=== PATIENT | male | born 1955 | race Caucasian/White ===

== ENCOUNTER 2022-10-15 23:35 | Inpatient (IN) | payer MEDICARE, OTHER ==
--- NOTE | 2022-10-16 | ED ---
Recheck HPI - General Stated Complaint: STEMI Time Seen by Provider: 10/15/22 23:43 Source: RN notes reviewed, old records reviewed Mode of arrival: EMS Limitations: no limitations - History of Present Illness Initial Comments: This is a 66-year-old male to the emergency department for evaluation. Patient presents today for evaluation regards to chest pain he was except as an outpatient transfer for chest pain evaluation and treatment. Patient arrives without chest pain currently. MD Complaint: other (Persistent chest pain possibly abnormal EKG) Returns Today for: Called Because of Abnormal Lab/Test (EKG concern) Symptoms Since Prior Visit: no new symptoms Associated Symptoms: none Treatments Prior to Arrival: Given Pain Meds on Review of Systems ROS Statement: Those systems with pertinent positive or pertinent negative responses have been documented in the HPI. ROS Other: All systems not noted in ROS Statement are negative. General Exam General appearance: alert, in no apparent distress Head exam: Present: atraumatic, normocephalic, normal inspection Eye exam: Present: normal appearance, PERRL, EOMI. Absent: scleral icterus, conjunctival injection, periorbital swelling ENT exam: Present: normal exam, mucous membranes moist Neck exam: Present: normal inspection. Absent: tenderness, meningismus, lymphadenopathy Respiratory exam: Present: normal lung sounds bilaterally. Absent: respiratory distress, wheezes, rales, rhonchi, stridor Cardiovascular Exam: Present: regular rate, normal rhythm, normal heart sounds. Absent: systolic murmur, diastolic murmur, rubs, gallop, clicks GI/Abdominal exam: Present: soft, normal bowel sounds. Absent: distended, tenderness, guarding, rebound, rigid Extremities exam: Present: normal inspection, full ROM, normal capillary refill. Absent: tenderness, pedal edema, joint swelling, calf tenderness Back exam: Present: normal inspection Neurological exam: Present: alert, oriented X3, CN II-XII intact Psychiatric exam: Present: normal affect, normal mood Skin exam: Present: warm, dry, intact, normal color. Absent: rash Course Vital Signs 10/15/22 10/15/22 23:36 23:46 Temperature 98.2 F Pulse Rate 102 H 105 H Respiratory 16 16 Rate Blood Pressure 130/83 O2 Sat by Pulse 98 98 Oximetry - Reevaluation(s) Reevaluation #1: 10/16/22 00:22 Medical record is reviewed 10/16/22 00:22 Transferring paperwork is reviewed Reevaluation #2: 10/16/22 00:22 Chest pain has resolved Reevaluation #3: 10/16/22 00:22 Patient informed results and questions answered Reevaluation #4: 10/16/22 00:22 Differential Chest Pain: Stable Angina, Unstable Angina, STEMI, NSTEMI Aortic Dissection, Pneumothorax, Musculoskeletal, Esophageal Spasm GERD, Cholecystitis, Pancreatitis, Zoster, this is not meant to be an all-inclusive list. Reevaluation #5: 10/16/22 00:22 Was pt. sent in by a medical professional or institution? @ -prior hospital Did you speak to anyone other than the patient for history? @ -EMS, prior ER physician Did you review nursing and triage notes? @ -agree Were old charts reviewed? @ -prior hospital Differential Diagnosis? @ -prior EKG interpreted by me (3pts min.)? @ -yes X-rays interpreted by me (1pt min.)? @ -[none] CT interpreted by me (1pt min.)? @ -[none] U/S interpreted by me (1pt. min.)? @ -[none] What testing was considered but not performed? (CT, X-rays, U/S, labs)? Why? @ no What meds were considered but not given? Why? @ -[none] Did you discuss the management of the patient with other professionals? 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 @ -[none] Was smoking cessation discussed for >3mins.? @ -[none] Was critical care preformed (if so, how long)? @ -[none] Were there social determinants of health that impacted care today? How? (Homelessness, low income, unemployed, alcoholism, drug addiction, transportation, low edu. Level, literacy, decrease access to med. care, senior living, rehab)? @ -no Was there de-escalation of care discussed even if they declined? (Discuss DNR or withdrawal of care, Hospice)? @ -no What co-morbidities impacted this encounter? (DM, HTN, Smoking, COPD, CAD, Cancer, CVA, Hep., AIDS, mental health diagnosis, sleep apnea, morbid obesity)? @ -no Was patient admitted / discharged? @ -admit Undiagnosed new problem with uncertain prognosis? @ -[none] Drug Therapy requiring intensive monitoring for toxicity (Heparin, Nitro, Insulin, Cardizem)? @ -[none] Were any procedures done? @ -[none] Diagnosis/symptom? @ -cp Acute, or Chronic, or Acute on Chronic? @ -[acute Uncomplicated (without systemic symptoms) or Complicated (systemic symptoms)? @ -[default] Side effects of treatment? @ -[none] Exacerbation, Progression, or Severe Exacerbation] @ -[no] Poses a threat to life or bodily function? @ -[no] - Consultations Consultation #1: Spoke with sound regarding admission. Medical Decision Making - Medical Decision Making 66 male DF for evaluation, patient presents as a transfer from outside for chest pain rule out ACS. She is again normal here in the ER patient will be admitted for cardiology evaluation management - EKG Data -: EKG Interpreted by Me (EKG is sinus tachycardia 103 TX 144 QRS 89 QTC 390) Disposition Clinical Impression: Chest pain, ACS (acute coronary syndrome) Disposition: ADMITTED IP TO THIS HOSP Condition: Good Is patient prescribed a controlled substance at d/c from ED?: No Referrals: None,Stated [Primary Care Provider] - 1-2 days Time of Disposition: 23:55
[2022-10-16] MEDS ORDERED: NALOXONE 0.4 MG/ML 1 ML VIAL IV PRN (00:55)
[2022-10-16] MEDS ORDERED: MORPHINE SULFATE 4 MG/ML SYRINGE IV PRN (00:55)
[2022-10-16] MEDS ORDERED: PROCHLORPERAZINE 5 MG TAB PO PRN (00:55)
[2022-10-16 01:09] LABS: Basophils % (A) 0 %; Eosinophils % (A) 0 %; HCT 30.6 % (39.0-53.0); HGB 9.8 gm/dL (13.0-17.5); Hypochromasia Slight; Lymphocytes # (A) 2.2 k/uL (1.0-4.8); Lymphocytes % (A) 16 %; MCHC 32.1 g/dL (31.0-37.0); MCV 90.5 fL (80.0-100.0); Mean Platelet Volume 8.7; Monocytes # (A) 0.5 k/uL (0-1.0); Monocytes % (A) 4 %; Neutrophils # (A) 10.7 k/uL (1.3-7.7); Neutrophils % (A) 79 %; Platelet Count 310 k/uL (150-450); RBC 3.38 m/uL (4.30-5.90); RDW 14.4 % (11.5-15.5); WBC 13.5 k/uL (3.8-10.6)
[2022-10-16 01:17] LABS: Albumin 3.1 g/dL (3.5-5.0); Magnesium 1.2 mg/dL (1.6-2.3); Potassium 4.4 mmol/L (3.5-5.1); Total Bilirubin 0.3 mg/dL (0.2-1.3); Total Protein 5.4 g/dL (6.3-8.2)
[2022-10-16 01:19] LABS: INR 1.1 (<1.2)
[2022-10-16 01:20] LABS: Prothrombin Time 11.3 sec (9.0-12.0)
[2022-10-16] MEDS ORDERED: HEPARIN SODIUM 1,000 UN/ML (10ML VL) IV PRN ×3 (01:30→09:49)
--- NOTE | 2022-10-16 02:05 | XR ---
EXAMINATION TYPE: XR chest 2V DATE OF EXAM: 10/16/2022 COMPARISON: NONE HISTORY: Chest pain TECHNIQUE: 2 views FINDINGS: Heart and mediastinum are normal. Lungs are clear. Diaphragm is normal. Bony thorax is inta ct. There are chest leads. IMPRESSION: Normal chest.
[2022-10-16] MEDS: HEPARIN SOD,PORK IN 0.45% NACL 25,000 UNIT in 0.45% NACL 1 250ML.BAG IV SCH (02:21)
--- NOTE | 2022-10-16 05:09 | P.HPIM ---
History of Present Illness H&P Date: 10/16/22 Patient is a 66-year-old male with a PMH of type II DM, hypertension, and coronary artery disease status post NC in the past who is transferred from [facility] where he had presented with complaints of chest pain. The patient reports that he developed a left-sided pressure-like chest discomfort at around 8 PM tonight, with radiation to the left arm, constant, 10 out of 10 at maximum intensity, with no alleviating or exacerbating features, with some associated nausea and minimal lightheadedness. He reports that his pain resolved after receiving nitroglycerin at [facility] and reported being symptom-free at the time of interview. Denied any prior history of such pain. Denied lower extremity swelling or pain. Denied experiencing fever, chills, cough, abdominal pain, diarrhea. While at [facility], there was suspicion for an ST elevation NC which additional longer had upon arrival at the emergency room with EKG showing sinus tachycardia 10 3 bpm with T-wave flattening in lead 3 as reviewed by me. Repeat EKG showed sinus rhythm at 97 bpm with T-wave inversion in lead 3. Laboratory evaluation revealed leukocytosis of 13.5 and hemoglobin 9.8, troponin 2.650, magnesium 1.2, creatinine 2.17, and glucose 377. Review of systems: Pertinent positives and negatives as discussed in HPI, a complete review of systems was performed and all other systems are negative. Physical examination: General: non toxic, no distress, appears at stated age, obese Derm: no unusual rashes/lesions, warm Head: atraumatic, normocephalic, symmetric Eyes: EOMI, no lid lag, anicteric sclera, pupils equal round reactive to light ENT: Nose and ears atraumatic Neck: No cervical lymphadenopathy, trachea midline, supple Mouth: no lip lesion, mucus membranes moist Cardiovascular: S1S2 reg, no murmur, positive dorsalis pedis pulse bilateral, no edema Lungs: CTA bilateral, no rhonchi, no rales, no accessory muscle use Abdominal: soft, nontender to palpation, no guarding Ext: muscle strength 5 out of 5 in all 4 extremities grossly, no gross muscle atrophy, no contractures, Neuro: CN II-XI grossly intact, no gross focal neuro deficits Psych: Alert, oriented, appropriate affect Assessment/plan Non-ST elevation NC -Continue with heparin infusion -Aspirin, statin -Cardiology consulted -Cardiac monitoring -Trend troponin Severe hypomagnesemia -Replace and monitor Kidney injury, acute versus chronic -Continue with gentle IV hydration -Monitor for now Chronic conditions: Type II DM, hypertension, HLD -Insulin sliding scale with glucose monitoring -Continue with home meds once confirmed DVT prophylaxis -Heparin infusion The patient is admitted with an anticipated less than 2 midnight stay for evaluation of NSTEMI CODE STATUS: Full Code Discussed with: Patient Anticipated discharge date: in am Anticipated discharge place: Home Past Medical History Past Medical History: Chest Pain / Angina, Diabetes Mellitus, Hypertension History of Any Multi-Drug Resistant Organisms: None Reported Past Surgical History: Back Surgery Past Psychological History: No Psychological Hx Reported Smoking Status: Former smoker Past Alcohol Use History: None Reported Past Drug Use History: None Reported - Past Family History Father Family Medical History: Hypertension Medications and Allergies Allergies Allergy/AdvReac Type Severity Reaction Status Date / Time amlodipine [From [facility]] Allergy Unknown Verified 10/16/22 01:04 Physical Exam Vitals: Vital Signs Temp Pulse Resp BP Pulse Ox 10/16/22 03:30 98 24 139/85 97 10/16/22 02:30 99 24 143/77 96 10/16/22 01:30 98 24 126/77 97 10/16/22 00:30 24 130/80 98 10/15/22 23:46 105 H 16 98 10/15/22 23:36 98.2 F 102 H 16 130/83 98 Intake and Output 10/15/22 10/15/22 10/16/22 14:59 22:59 06:59 Other: Weight 94.347 kg Results CBC & Chem 7: 10/15/22 23:47 10/15/22 23:47 Labs: Abnormal Lab Results - Last 24 Hours (Table) 10/15/22 10/15/22 10/15/22 Range/Units 23:47 23:47 23:47 WBC 13.5 H (3.8-10.6) k/uL RBC 3.38 L (4.30-5.90) m/uL Hgb 9.8 L (13.0-17.5) gm/dL Hct 30.6 L (39.0-53.0) % Neutrophils # 10.7 H (1.3-7.7) k/uL APTT 88.0 H (22.0-30.0) sec Sodium 135 L (137-145) mmol/L Chloride 108 H (98-107) mmol/L Carbon Dioxide 21 L (22-30) mmol/L BUN 37 H (9-20) mg/dL Creatinine 2.17 H (0.66-1.25) mg/dL Glucose 377 H (74-99) mg/dL Calcium 8.0 L (8.4-10.2) mg/dL Magnesium 1.2 L (1.6-2.3) mg/dL AST 83 H (17-59) U/L ALT 57 H (4-49) U/L Troponin I (0.000-0.034) ng/mL Total Protein 5.4 L (6.3-8.2) g/dL Albumin 3.1 L (3.5-5.0) g/dL 10/15/22 Range/Units 23:47 WBC (3.8-10.6) k/uL RBC (4.30-5.90) m/uL Hgb (13.0-17.5) gm/dL Hct (39.0-53.0) % Neutrophils # (1.3-7.7) k/uL APTT (22.0-30.0) sec Sodium (137-145) mmol/L Chloride (98-107) mmol/L Carbon Dioxide (22-30) mmol/L BUN (9-20) mg/dL Creatinine (0.66-1.25) mg/dL Glucose (74-99) mg/dL Calcium (8.4-10.2) mg/dL Magnesium (1.6-2.3) mg/dL AST (17-59) U/L ALT (4-49) U/L Troponin I 2.650 H* (0.000-0.034) ng/mL Total Protein (6.3-8.2) g/dL Albumin (3.5-5.0) g/dL
[2022-10-16] MEDS ORDERED: METOPROLOL TARTRATE 50 MG TAB PO STA (05:10)
[2022-10-16] MEDS ORDERED: ATORVASTATIN 80 MG TAB PO STA ×2 (05:10→10:00)
[2022-10-16] MEDS ORDERED: MAGNESIUM OXIDE 400 MG TAB PO STA (06:09)
[2022-10-16] MEDS: MAGNESIUM SULFATE-D5W PMX 1 GM in DEXTROSE/WATER 1 100ML.BAG IVPB SCH ×2 (06:37→07:41)
[2022-10-16 08:22] LABS: Calcium 8.4 mg/dL (8.4-10.2); Potassium 3.9 mmol/L (3.5-5.1)
[2022-10-16] MEDS ORDERED: ASPIRIN 325 MG TAB PO SCH (09:00)
[2022-10-16] MEDS ORDERED: SODIUM CHLORIDE 0.9% 500 ML 250 ML IV ONE (09:34)
[2022-10-16] MEDS: METOPROLOL TARTRATE 50 MG TAB PO SCH ×2 (09:59→20:36)
[2022-10-16] MEDS ORDERED: ALPRAZolam 0.25 MG TAB PO PRN (10:00)
[2022-10-16] MEDS ORDERED: ASPIRIN 325 MG TAB PO STA (10:00)
[2022-10-16] MEDS ORDERED: NITROGLYCERIN SL TABS 0.4 MG TAB SUBLINGUAL PRN ×2 (10:00→21:26)
[2022-10-16] MEDS ORDERED: ALPRAZolam 0.5 MG TAB PO PRN (10:00)
[2022-10-16] MEDS: SODIUM CHLORIDE 0.9% 1,000 ML IV SCH (10:01)
[2022-10-16] MEDS ORDERED: DEXTROSE 50% SYRINGE 50 ML IVP PRN ×2 (10:11)
[2022-10-16] MEDS ORDERED: ASPIRIN 81 MG PO STA (10:21)
[2022-10-16] MEDS: INSULIN ASPART (NovoLOG) 100 UNIT/ML VIAL SQ SCH ×4 (10:32→20:37)
[2022-10-16 10:34] LABS: Glucose,Whole Blood 194 mg/dL (70-110)
[2022-10-16] MEDS ORDERED: fentaNYL (PF) 50 MCG/ML 2 ML AMP ONE (11:05)
[2022-10-16] MEDS ORDERED: VERAPAMIL 2.5 MG/ML 2 ML AMP ONE (11:05)
[2022-10-16] MEDS ORDERED: LIDOCAINE 1% INJ 10MG/ML (5 ML VIAL-PF) SQ ONE (11:36)
[2022-10-16] MEDS ORDERED: MIDAZOLAM 2 MG/2 ML VIAL IV ONE (11:39)
[2022-10-16] MEDS ORDERED: fentaNYL (PF) 50 MCG/ML 2 ML AMP IV ONE (11:39)
[2022-10-16] MEDS ORDERED: SODIUM CHLORIDE 0.9% 1,000 ML IV ONE (11:40)
[2022-10-16] MEDS: HEPARIN SODIUM 1,000 UN/ML (10ML VL) IV ONE ×3 (11:42→12:10)
[2022-10-16] MEDS ORDERED: TICAGRELOR 90 MG TAB ONE (11:54)
[2022-10-16] MEDS ORDERED: TICAGRELOR 90 MG TAB PO ONE (11:55)
[2022-10-16] MEDS: NITROGLYCERIN 1000MCG/10ML SYRINGE INTRACORON ONE ×2 (12:04→12:09)
[2022-10-16] MEDS ORDERED: IOPAMIDOL-370 125ML BTL INJ ONE (12:12)
--- NOTE | 2022-10-16 13:53 | P.CRDCN ---
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 He has a past medical history of hypertension, hyperlipidemia, diabetes mellitus type 2, gastroesophageal reflux disease, coronary artery disease, chronic kidney di sease, osteoarthritis, remote history of tobacco use [facility]sided chest pain left arm pain while he was laying on the couch and started around 8 PM yesterday. He states he was given 2 nitroglycerin and aspirin on EMS transport and the pain was gone by the time he reached the hospital. Patient also gives history of having recent influenza A greater than 1 week ago. He continues to have cough with phlegm production. Patient had magnesium replaced and has been started on heparin drip. EKG T-wave inversions in the inferior leads Chest x-ray no acute cardiac troponin process WBC 13.5, hemoglobin 9.8. Sodium 135, potassium 4.4, BUN 37 and creatinine 2.17 initially. Repeat BUN 30 and creatinine 1.88. Magnesium 1.2 troponin 2.65, 11.4, 10.7 Home cardiac medications: Amlodipine 5 mg daily, aspirin 81 mg daily, atorvastatin 20 mg daily, chlorthalidone 50 mg daily, hydrochlorothiazide 25 mg daily, lisinopril 20 mg 3 times daily, Lopressor 50 mg twice daily Review Of Systems: At the time of my evaluation: Constitutional: No fever, no chills. No weakness, fatigue or lethargy. EENT: No headache. No dizziness. Lungs: No shortness of breath, reports cough, reports sputum production. No wheezing. Cardiovascular: No chest pain, no lower extremity edema. No palpitations. No paroxysmal nocturnal dyspnea. No orthopnea. No lightheadedness or dizziness. No syncopal episodes. Abdominal: No abdominal pain. No nausea, vomiting. No diarrhea. No constipation. No bloody or tarry stools. No loss of appetite. Genitourinary: No dysuria.. No urinary retention. Musculoskeletal: No myalgias. No muscle weakness, no gait dysfunction, no frequent falls. No back pain. No neck pain. Integumentary: No wounds, no lesions. No rash or pruritus. No unusual bruising. Neurologic: No aphasia. No facial droop. No change in mentation. No head injury. No headache. No paralysis. No paresthesia. Psychiatric: No depression. No anxiety. Endocrine: No abnormal blood sugars. Physical examination: Gen: This is a 66-year-old male. He is resting on ER stretcher and appears to be comfortable at rest. Family members at bedside VS: reviewed HEENT: Head is atraumatic, normocephalic. Pupils equal, round. Sclerae is anicteric. NECK: Supple. No JVD. No lymphadenopathy. No thyromegaly. LUNGS: Clear to auscultation. No wheezes or rhonchi. No intercostal retractions. HEART: Regular rate and rhythm. No murmur. ABDOMEN: Soft. Bowel sounds are present. No masses. No tenderness. EXTREMITIES: No pedal edema. No calf tenderness. NEUROLOGICAL: Patient is awake, alert and oriented x3. Cranial nerves 2 through 12 are grossly intact. Assessment: Non-ST elevated myocardial infarction Hypertension Hyperlipidemia Diabetes mellitus type 2 Gastroesophageal reflux disease Coronary artery disease history unknown details Acute kidney injury Remote history of tobacco use Plan: Continue patient on heparin drip Obtain 2-D echocardiogram and Doppler study to assess cardiac structure and function Patient will be scheduled for cardiac catheterization today with Dr. Caballero. Recommend holding chlorthalidone, lisinopril, hydrochlorothiazide We have resumed patient's Norvasc, aspirin, atorvastatin and Lopressor Further recommendations to follow based upon clinical course Thank you kindly for this consultation. Nurse practitioner note has been reviewed, I agree with documented findings and plan of care. Patient was seen and examined. Past Medical History Past Medical History: Chest Pain / Angina, Diabetes Mellitus, Hypertension History of Any Multi-Drug Resistant Organisms: None Reported Past Surgical History: Back Surgery Past Psychological History: No Psychological Hx Reported Smoking Status: Former smoker Past Alcohol Use History: None Reported Past Drug Use History: None Reported - Past Family History Father Family Medical History: Hypertension Mother Family Medical History: Congestive Heart Failure (CHF), Diabetes Mellitus Medications and Allergies Home Medications Medication Instructions Recorded Confirmed Type Aspirin 81 mg PO DAILY 10/16/22 10/16/22 History Atorvastatin [Lipitor] 20 mg PO DAILY 10/16/22 10/16/22 History Chlorthalidone 50 mg PO QAM 10/16/22 10/16/22 History Cyclobenzaprine [Flexeril] 10 mg PO Q8H PRN 10/16/22 10/16/22 History Diclofenac Sodium Gel [Voltaren 1 applic TOPICAL QID PRN 10/16/22 10/16/22 History Gel] Gabapentin 600 mg PO DAILY 10/16/22 10/16/22 History Meloxicam [Mobic] 15 mg PO DAILY 10/16/22 10/16/22 History Metoprolol Tartrate [Lopressor] 50 mg PO BID 10/16/22 10/16/22 History Multivitamins, Thera [Multivitamin 1 tab PO DAILY 10/16/22 10/16/22 History (formulary)] Omeprazole [PriLOSEC] 20 mg PO BID 10/16/22 10/16/22 History Pioglitazone [Actos] 30 mg PO DAILY 10/16/22 10/16/22 History Triamcinolone 0.5% Cream [Kenalog 1 applic TOPICAL BID 10/16/22 10/16/22 History 0.5% Cream] Zolpidem [Ambien] 10 mg PO HS 10/16/22 10/16/22 History amLODIPine [Norvasc] 5 mg PO HS 10/16/22 10/16/22 History glipiZIDE [Glucotrol XL] 10 mg PO BID 10/16/22 10/16/22 History hydroCHLOROthiazide [Hydrodiuril] 25 mg PO DAILY 10/16/22 10/16/22 History lisinopriL [Zestril] 20 mg PO TID 10/16/22 10/16/22 History metFORMIN HCL [Glucophage] 1,000 mg PO BID 10/16/22 10/16/22 History Allergies Allergy/AdvReac Type Severity Reaction Status Date / Time amlodipine [From Norvasc] Allergy Unknown Verified 10/16/22 08:58 Physical Exam Vitals: Vital Signs Temp Pulse Resp BP Pulse Ox 10/16/22 08:32 97 10/16/22 06:00 99 24 150/93 97 10/16/22 05:30 104 H 18 150/93 95 10/16/22 03:30 98 24 139/85 97 10/16/22 02:30 99 24 143/77 96 10/16/22 01:30 98 24 126/77 97 10/16/22 00:30 24 130/80 98 10/15/22 23:46 105 H 16 98 10/15/22 23:36 98.2 F 102 H 16 130/83 98 Intake and Output 10/15/22 10/16/22 10/16/22 22:59 06:59 14:59 Other: Weight 94.347 kg Results 10/15/22 23:47 10/16/22 07:12 Cardiac Enzymes 10/15/22 10/15/22 10/16/22 Range/Units 23:47 23:47 04:06 AST 83 H (17-59) U/L Troponin I 2.650 H* 11.400 H* (0.000-0.034) ng/mL 10/16/22 Range/Units 07:12 AST (17-59) U/L Troponin I 10.700 H* (0.000-0.034) ng/mL Coagulation 10/15/22 Range/Units 23:47 PT 11.3 (9.0-12.0) sec APTT 88.0 H (22.0-30.0) sec CBC 10/15/22 Range/Units 23:47 WBC 13.5 H (3.8-10.6) k/uL RBC 3.38 L (4.30-5.90) m/uL Hgb 9.8 L (13.0-17.5) gm/dL Hct 30.6 L (39.0-53.0) % Plt Count 310 (150-450) k/uL Comprehensive Metabolic Panel 10/15/22 10/16/22 Range/Units 23:47 07:12 Sodium 135 L 138 (137-145) mmol/L Potassium 4.4 3.9 (3.5-5.1) mmol/L Chloride 108 H 108 H (98-107) mmol/L Carbon Dioxide 21 L 22 (22-30) mmol/L BUN 37 H 30 H (9-20) mg/dL Creatinine 2.17 H 1.88 H (0.66-1.25) mg/dL Glucose 377 H 163 H (74-99) mg/dL Calcium 8.0 L 8.4 (8.4-10.2) mg/dL AST 83 H (17-59) U/L ALT 57 H (4-49) U/L Alkaline Phosphatase 69 (38-126) U/L Total Protein 5.4 L (6.3-8.2) g/dL Albumin 3.1 L (3.5-5.0) g/dL Current Medications Generic Name Dose Route Start Last Admin Trade Name Ermias PRN Reason Stop Dose Admin Aspirin 325 mg 10/16/22 09:00 Aspirin 325 Mg Tab PO DAILY [facility] Heparin Sodium (Porcine) 0 unit 10/16/22 01:30 Heparin Sodium 1,000 Un/Ml (10ml Vl) IV PER PROTOCOL PRN Low PTT Protocol Heparin Sodium/Sodium Chloride 250 mls @ 10.001 mls/hr 10/16/22 01:30 10/16/22 02:21 25,000 unit/ Sodium Chloride IV 10.6 units/kg/hr .Q24H REGGIE 10.001 mls/hr Administration Protocol 10.6 UNITS/KG/HR Morphine Sulfate 4 mg 10/16/22 00:55 Morphine Sulfate 4 Mg/Ml Syringe IV Q4HR PRN Severe Pain (Scale 7 to 10) Naloxone HCl 0.2 mg 10/16/22 00:55 Naloxone 0.4 Mg/Ml 1 Ml Vial IV Q2M PRN Opioid Reversal Prochlorperazine Maleate 5 mg 10/16/22 00:55 Prochlorperazine 5 Mg Tab PO Q8HR PRN Nausea And Vomiting Intake and Output 10/15/22 10/16/22 10/16/22 22:59 06:59 14:59 Other: Weight 94.347 kg 10/15/22 23:47 10/16/22 07:12
--- NOTE | 2022-10-16 15:46 | P.PN ---
Progress Note - Text Progress Note Date: 10/16/22 Hospitalist Interval Note Patient seen and examined at bedside. Vital signs reviewed General: non toxic, no distress, appears at stated age Derm: warm, dry Head: atraumatic, normocephalic, symmetric Eyes: EOMI, no lid lag, anicteric sclera Mouth: no lip lesion, mucus membranes moist Cardiovascular: S1S2 reg, no murmur, positive posterior tibial pulse bilateral, Lungs: CTA bilateral, no rhonchi, no rales , no accessory muscle use Abdominal: soft, nontender to palpation, no guarding, no appreciable organomegaly Ext: no gross muscle atrophy, no edema, no contractures Neuro: CN II-XI grossly intact, no focal neuro deficits Psych: Alert, oriented, appropriate affect Assessment/Plan: Non-ST elevation NC Severe hypomagnesemia Acute kidney injury - Cardiology consult - On heparin drip - Likely cardiac cath today - We'll continue to monitor BMP and urine output This is an update note for patient. There is no charge associated with this note.
[2022-10-16 17:24] LABS: Glucose,Whole Blood 373 mg/dL (70-110)
[2022-10-16 20:16] LABS: Glucose,Whole Blood 235 mg/dL (70-110)
[2022-10-16] MEDS: ZOLPIDEM 5 MG TAB PO SCH (20:36)
[2022-10-16] MEDS: amLODIPine 5 MG TAB PO SCH (20:36)
[2022-10-16] MEDS ORDERED: MAG HYDROX/AL HYDROX/SIMETH 30 ML CUP PO PRN (21:26)
[2022-10-16] MEDS ORDERED: ATROPINE SULFATE 0.1 MG/ML 10ML SYRINGE IV PRN (21:26)
[2022-10-16] MEDS ORDERED: RX INFO: IV CONTRAST WAS GIVEN 1 EACH MISC MISCELLANE PRN (21:26)
[2022-10-16] MEDS ORDERED: ZOLPIDEM 5 MG TAB PO PRN (21:26)
--- NOTE | 2022-10-16 21:26 | P.PRCINT ---
Percutaneous Coronary Int. - Percutaneous Coronary Intervention Percutaneous Coronary Intervention: PROCEDURES PERFORMED: Left heart catheterization, bilateral coronary angiography, PCI mid PDA with a 2.25 x 12mm Xience CHRISTIE INDICATION: NSTEMI CONSENT:I have discussed the risks, benefits and alternative therapies for the above-mentioned procedure and for both sedation/analgesia as well as necessary blood product administration, if indicated, as they pertain to this patient. The patient has indicated understanding and acceptance of the risks and procedures discussed. PROCEDURE: After the risks, benefits and alternatives of the above mentioned procedure explained in detail with the patient, informed consent was obtained. Patient was taken to the catheterization lab and prepped and draped in usual fashion. 1% lidocaine was used to anesthetize the right radial artery. A 6- Maldivian sheath was placed in the right radial artery using modified Seldinger technique. Left coronary angiography was performed with a 5-Maldivian JL 3.5 catheter and right coronary angiography was performed with a 5-Maldivian JR5 cathet er in various views. A 5-Maldivian FR5 catheter was inserted into the left ventricle and pressure measurements were obtained. The decision was made to perform PCI of the PDA which appeared to be the culprit lesion. Heparin was given for ACT greater than 250. A 6Fr AL 0.75 guide was used to engage the RCA. A 0.014 BMW wire was advanced into the distal PDA. A 2.0 x 12mm balloon was used to prodilate the lesion. Next a 2.25 x 12mm Xience CHRISTIE was placed in the mid PDA. The wire was pulled and final angiogram was performed. There was a more proximal 40% PDA stenosis felt best treated medical ly. Pre intervention there was 99% stenosis and ROSA M 2 flow and post intervention there was 0% stenosis and ROSA M 3 flow. The right radial sheath was removed and a TR band was placed with hemostasis achieved. The patient tolerated the procedure well. Patient was transported back to the post catheterization holding area in stable condition. Conscious Sedation: Patient was monitored under the direct supervision of vision of myself for conscious sedation using Versed and fentanyl for a total duration of 36 minutes HEMODYNAMICS: Ao: 148/61 LV: 144/5, LVEDP 12 SELECTIVE CORONARY ARTERIOGRAPHY: LEFT MAIN: The left main is a large caliber vessel which bifurcates into the LAD and circumflex. There is no significant stenosis. LEFT ANTERIOR DESCENDING CORONARY ARTERY: LAD is a large caliber vessel which stops just short of the apex. There is diffuse proximal LAD 10-30% stenosis, and diffuse mid to distal LAD 40-50% stenosis. LEFT CIRCUMFLEX CORONARY ARTERY: Left circumflex is a moderate caliber vessel without significant stenosis. RIGHT CORONARY ARTERY: The right coronary artery is a large caliber vessel which gives off a PDA and PLV branch and is the dominant vessel. The RCA is normal. The PDA has diffuse mild to moderate disease including 30-50% proximal stenosis and a more focal mid PDA 99% stenosis. The PDA appears to reach to the apex. The PLV has diffuse mild luminal irregularities. FINAL IMPRESSION: 1. CAD as described above including mid LAD long 40-50% stenosis, PDA 99% stenosis 2. Normal left sided filling pressures 3. CKD PLAN: 1. Aggressive risk factor modification per most recent ACC/AHA guidelines. 2. Continue dual antiplatelets with aspirin and Brillinta for 12 months. 3. IVF and monitor Cr closely.
[2022-10-17] MEDS: TICAGRELOR 90 MG TAB PO SCH ×3 (00:01→21:17)
[2022-10-17] MEDS: SODIUM CHLORIDE 0.9% 1,000 ML in EMPTY BAG 1 BAG IV SCH ×3 (01:02→20:41)
[2022-10-17] MEDS: HEPARIN SOD,PORK IN 0.45% NACL 25,000 UNIT in 0.45% NACL 1 250ML.BAG IV SCH (01:03)
[2022-10-17 05:56] LABS: Glucose,Whole Blood 176 mg/dL (70-110)
[2022-10-17] MEDS: INSULIN ASPART (NovoLOG) 100 UNIT/ML VIAL SQ SCH ×4 (05:59→21:18)
[2022-10-17] MEDS: SODIUM CHLORIDE 0.9% 1,000 ML IV SCH (06:00)
[2022-10-17] MEDS ORDERED: HEPARIN SODIUM,PORCINE 10,000 UNIT in SODIUM CHLORIDE 0.9% 1,000 ML IRRIGATION PRN (07:00)
[2022-10-17] MEDS ORDERED: HEPARIN SODIUM,PORCINE 2,500 UNIT in SODIUM CHLORIDE 0.9% 250 ML IRRIGATION PRN (07:00)
[2022-10-17] MEDS ORDERED: ASPIRIN 81 MG PO SCH (09:00)
[2022-10-17 09:03] LABS: Calcium 8.4 mg/dL (8.4-10.2); Potassium 4.4 mmol/L (3.5-5.1)
[2022-10-17] MEDS: GABAPENTIN 300 MG CAP PO SCH (09:12)
[2022-10-17] MEDS: METOPROLOL TARTRATE 50 MG TAB PO SCH ×2 (09:12→21:17)
[2022-10-17] MEDS: ASPIRIN 81 MG PO SCH (09:12)
[2022-10-17] MEDS: ATORVASTATIN 40 MG TAB PO SCH (09:13)
[2022-10-17 12:04] LABS: Glucose,Whole Blood 259 mg/dL (70-110)
--- NOTE | 2022-10-17 12:22 | P.PN ---
Subjective Progress Note Date: 10/17/22 Hospital Course: 66-year-old male with a PMH of type II DM, hypertension, and coronary artery disease status post ME in the past who is transferred from [facility] where he had presented with complaints of chest pain. While at [facility], there was suspicion for an ST elevation ME which additional longer had upon arrival at the emergency room with EKG showing sinus tachycardia 10 3 bpm with T-wave flattening in lead 3. Repeat EKG showed sinus rhythm at 97 bpm with T-wave inversion in lead 3. Laboratory evaluation revealed leukocytosis of 13.5 and hemoglobin 9.8, troponin 2.650, magnesium 1.2, creatinine 2.17, and glucose 377. Troponin peaked at 11.4. Patient kept on heparin drip. Cardiology was consulted. Cardiac catheterization completed, noted to have mid LAD 40-50% stenosis, PDA 99% stenosis status post PCI CHRISTIE to midPDA. Echo pending. Subjective: Patient seen and examined at bedside. No acute events overnight. Denies any further chest pain, palpitations, nausea, vomiting, diarrhea, constipation, abdominal pain, or urinary complaints. Pertinent positives and negatives as discussed above, a complete review of systems was performed and all other systems are negative. Vitals Signs Reviewed. General: nontoxic, no distress, appears at stated age Derm: warm, dry Head: atraumatic, normocephalic, symmetric Eyes: EOMI, no lid lag, anicteric sclera Mouth: no lip lesion, mucus membranes moist Cardiovascular: S1S2 reg, tachycardic, no murmur Lungs: CTA bilateral, no rhonchi, no rales , no accessory muscle use Abdominal: soft, nontender to palpation, no guarding, no appreciable organomegaly Ext: no gross muscle atrophy, no edema, no contractures Neuro: CN II-XI grossly intact, no focal neuro deficits Psych: Alert, oriented, appropriate affect Assessment and Plan: Non-ST elevation [place] Coronary artery disease Status post stent to mid PDA -Aspirin, [place], statin -Cardiology following -Cardiac monitoring -Also on metoprolol -Echo pending Severe hypomagnesemia -Replace and monitor Kidney injury, acute versus chronic -Continue with gentle IV hydration -Renal function improving, will restart on CAREN inhibitor at a lower dose -Patient is also on chlorthalidone and hydrochlorothiazide at home, unsure why - continue to hold Chronic conditions: Type II DM, hypertension, HLD -Insulin sliding scale with glucose monitoring -Medications reviewed and reconciled DVT ppx: Subcu heparin Code status: Full code Anticipated discharge place: Home Anticipated discharge time: Later tomorrow Objective - Vital Signs Vital signs: Vital Signs Temp 98.0 F 10/16/22 20:00 Pulse 96 10/17/22 08:00 Resp 18 10/17/22 01:21 BP 138/81 10/17/22 01:21 Pulse Ox 97 10/17/22 01:21 FiO2 Intake & Output 10/16/22 10/17/22 10/17/22 18:59 06:59 18:59 Intake Total 1213.608 5595 Output Total 100 Balance 6019.525 7160 Weight 94.347 kg Intake: IV 1000 Intake, IV Titration 82.008 1000 Amount Heparin Sod,Pork in 0.45% 82.008 NaCl 25,000 unit In 0.45 % NaCl 1 250ml.bag @ 10.6 UNITS/KG/HR 10.001 mls/ hr IV .Q24H [facility] Rx#: [id number] Sodium Chloride 0.9% 1, 1000 000 ml @ 50 mls/hr IV . Q20H [facility] Rx#:[id number] Oral 222 240 Output: Urine 100 Other: Voiding Method Urinal Urinal # Voids 4 - Labs CBC & Chem 7: 10/15/22 23:47 10/17/22 08:13 Labs: Abnormal Lab Results - Last 24 Hours (Table) 10/15/22 10/16/22 10/16/22 Range/Units 23:47 16:04 17:09 APTT 43.2 H (22.0-30.0) sec Sodium (137-145) mmol/L Creatinine (0.66-1.25) mg/dL Glucose (74-99) mg/dL POC Glucose (mg/dL) 373 H (70-110) mg/dL Hemoglobin A1c 7.9 H (0.0-6.0) % 10/16/22 10/17/22 10/17/22 Range/Units 20:15 05:54 08:13 APTT (22.0-30.0) sec Sodium 133 L (137-145) mmol/L Creatinine 1.40 H (0.66-1.25) mg/dL Glucose 267 H (74-99) mg/dL POC Glucose (mg/dL) 235 H 176 H (70-110) mg/dL Hemoglobin A1c (0.0-6.0) % 10/17/22 Range/Units 12:03 APTT (22.0-30.0) sec Sodium (137-145) mmol/L Creatinine (0.66-1.25) mg/dL Glucose (74-99) mg/dL POC Glucose (mg/dL) 259 H (70-110) mg/dL Hemoglobin A1c (0.0-6.0) %
[2022-10-17] MEDS: lisinopriL 20 MG TAB PO SCH (13:31)
--- NOTE | 2022-10-17 14:29 | P.PN ---
Subjective Progress Note Date: 10/17/22 History of present illness: This is a 66-year-old male patient has seen a cable maker in [place]. He has a past medical history of hypertension, hyperlipidemia, diabetes mellitus type 2, gastroesophageal reflux disease, coronary artery disease, chronic kidney disease, osteoarthritis, remote history of tobacco use [facility]sided chest pain left arm pain while he was laying on the couch and started around 8 PM yesterday. He states he was given 2 nitroglycerin and aspirin on EMS transport and the pain was gone by the time he reached the hospital. Patient also gives history of having recent influenza A greater than 1 week ago. He continues to have cough with phlegm production. Patient had magnesium replaced and has been started on heparin drip. EKG T-wave inversions in the inferior leads Chest x-ray no acute cardiac troponin process WBC 13.5, hemoglobin 9.8. Sodium 135, potassium 4.4, BUN 37 and creatinine 2.17 initially. Repeat BUN 30 and creatinine 1.88. Magnesium 1.2 troponin 2.65, 11.4, 10.7 Home cardiac medications: Amlodipine 5 mg daily, aspirin 81 mg daily, atorvastatin 20 mg daily, chlorthalidone 50 mg daily, hydrochlorothiazide 25 mg daily, lisinopril 20 mg 3 times daily, Lopressor 50 mg twice daily 10/17 Yesterday, patient underwent cardiac catheterization with Dr. Caballero and PCI of the mid PDA with stent. Patient has been started on Brilinta. Heart rate has been in the 70s to 90s, blood pressure 118/78, pulse ox 93% on room air. Potassium 4.4, BUN 20 creatinine 1.4. Echocardiogram is pending. Physical examination: Gen: This is a 66-year-old male. He is resting on ER stretcher and appears to be comfortable at rest. Family members at bedside VS: reviewed HEENT: Head is atraumatic, normocephalic. Pupils equal, round. Sclerae is anicteric. NECK: Supple. No JVD. No lymphadenopathy. No thyromegaly. LUNGS: Clear to auscultation. No wheezes or rhonchi. No intercostal retractions. HEART: Regular rate and rhythm. No murmur. ABDOMEN: Soft. Bowel sounds are present. No masses. No tenderness. EXTREMITIES: No pedal edema. No calf tenderness. NEUROLOGICAL: Patient is awake, alert and oriented x3. Cranial nerves 2 through 12 are grossly intact. Assessment: Non-ST elevated myocardial infarction status post cardiac catheterization and stent of the mid PDA Hypertension Hyperlipidemia Diabetes mellitus type 2 Gastroesophageal reflux disease Coronary artery disease history unknown details Acute kidney injury Remote history of tobacco use Plan: Continue patient on Brilinta, aspirin, statin, Lopressor, lisinopril, Norvasc Obtain 2-D echocardiogram report Patient will be scheduled for cardiac catheterization today with Dr. Caballero. Recommend holding chlorthalidone, hydrochlorothiazide Plan to monitor patient overnight and anticipate discharge home tomorrow. Nurse practitioner note has been reviewed, I agree with documented findings and plan of care. Patient was seen and examined. Objective - Vital Signs Vital signs: Vital Signs Temp 98.0 F 10/16/22 20:00 Pulse 96 10/17/22 01:21 Resp 18 10/17/22 01:21 BP 138/81 10/17/22 01:21 Pulse Ox 97 10/17/22 01:21 FiO2 Intake & Output 10/16/22 10/17/22 10/17/22 18:59 06:59 18:59 Intake Total 7547.031 5620 Output Total 100 Balance 9997.875 4347 Weight 94.347 kg Intake: IV 1000 Intake, IV Titration 82.008 1000 Amount Heparin Sod,Pork in 0.45% 82.008 NaCl 25,000 unit In 0.45 % NaCl 1 250ml.bag @ 10.6 UNITS/KG/HR 10.001 mls/ hr IV .Q24H [facility] Rx#: [id number] Sodium Chloride 0.9% 1, 1000 000 ml @ 50 mls/hr IV . Q20H [facility] Rx#:[id number] Oral 222 240 Output: Urine 100 Other: Voiding Method Urinal Urinal # Voids 4 - Labs CBC & Chem 7: 10/15/22 23:47 10/17/22 08:13 Labs: Abnormal Lab Results - Last 24 Hours (Table) 10/15/22 10/16/22 10/16/22 Range/Units 23:47 10:31 16:04 APTT 43.2 H (22.0-30.0) sec Sodium (137-145) mmol/L Creatinine (0.66-1.25) mg/dL Glucose (74-99) mg/dL POC Glucose (mg/dL) 194 H (70-110) mg/dL Hemoglobin A1c 7.9 H (0.0-6.0) % 10/16/22 10/16/22 10/17/22 Range/Units 17:09 20:15 05:54 APTT (22.0-30.0) sec Sodium (137-145) mmol/L Creatinine (0.66-1.25) mg/dL Glucose (74-99) mg/dL POC Glucose (mg/dL) 373 H 235 H 176 H (70-110) mg/dL Hemoglobin A1c (0.0-6.0) % 10/17/22 Range/Units 08:13 APTT (22.0-30.0) sec Sodium 133 L (137-145) mmol/L Creatinine 1.40 H (0.66-1.25) mg/dL Glucose 267 H (74-99) mg/dL POC Glucose (mg/dL) (70-110) mg/dL Hemoglobin A1c (0.0-6.0) %
[2022-10-17 14:47] VITALS: BMI 32.5
[2022-10-17 16:59] LABS: Glucose,Whole Blood 228 mg/dL (70-110)
[2022-10-17] MEDS: HEPARIN SODIUM,PORCINE/PF 5,000 UNIT/0.5 ML SYRINGE SQ SCH (17:29)
--- NOTE | 2022-10-17 17:39 | CA ---
Transthoracic Echo Report Name: Wilver Arredondo Age: 66 Gender: M : 1955 Exam Date: 10/17/2022 11:14 Exam Location: [place] [facility] Ht (in): 67 Wt (lb): 208 Ordering Physician: Mi Dickey Attending/Referring Phys: [id number], Keli Rn Review Yennifer Kaufman RDCS Procedure CPT: Indications: lvf, NSTEMI Cardiac Hx: Technical Quality: Technically difficult study Contrast 1: Lumason Total Dose (mL): 4 Contrast 2: Total Dose (mL): MEASUREMENTS (Male / Female) Normal Values 2D ECHO LV Diastolic Diameter PLAX 3.8 cm 4.2 - 5.9 / 3.9 - 5.3 cm LV Systolic Diameter PLAX 3.1 cm IVS Diastolic Thickness 1.2 cm 0.6 - 1.0 / 0.6 - 0.9 cm LVPW Diastolic Thickness 1.1 cm 0.6 - 1.0 / 0.6 - 0.9 cm LV Relative Wall Thickness 0.6 LA Volume 48.5 cm??? 18 - 58 / 22 - 52 cm??? DOPPLER AV Peak Velocity 91.8 cm/s AV Peak Gradient 3.4 mmHg LVOT Peak Velocity 72.9 cm/s LVOT Peak Gradient 2.1 mmHg MV Area PHT 5.3 cm??? Mitral E Point Velocity 51.1 cm/s Mitral A Point Velocity 83.7 cm/s Mitral E to A Ratio 0.6 MV Deceleration Time 143.4 ms MV E' Velocity 5.3 cm/s Mitral E to MV E' Ratio 9.6 FINDINGS Left Ventricle Mildly increased septal wall thickness. Mid septal and distal inferior wall hypokinesis. Left ventricular ejection fraction is estimated at 45-50 %. Right Ventricle Normal right ventricular size and function. Right Atrium Right atrium not well visualized. Left Atrium Normal left atrial size. Mitral Valve Mild mitral regurgitation. Aortic Valve No aortic valve stenosis or regurgitation. Tricuspid Valve Structurally normal tricuspid valve. Mild tricuspid regurgitation. Pulmonic Valve Trace pulmonic regurgitation. Pericardium No pericardial effusion. Aorta Normal size aortic root and proximal ascending aorta. CONCLUSIONS Left ventricular ejection fraction 45-50% Mild increased left ventricular wall thickness Mild mitral regurgitation Mild tricuspid regurgitation No pericardial effusion Previewed by: Dr. Yazan Caballero DO (Electronically Signed) Final Date: 17 October 2022 17:38
[2022-10-17 20:15] LABS: Glucose,Whole Blood 357 mg/dL (70-110)
[2022-10-17] MEDS: ZOLPIDEM 5 MG TAB PO SCH (21:17)
[2022-10-17] MEDS: amLODIPine 5 MG TAB PO SCH (21:17)
[2022-10-18] MEDS: HEPARIN SODIUM,PORCINE/PF 5,000 UNIT/0.5 ML SYRINGE SQ SCH ×2 (00:05→09:47)
[2022-10-18] MEDS: HEPARIN SOD,PORK IN 0.45% NACL 25,000 UNIT in 0.45% NACL 1 250ML.BAG IV SCH (01:59)
[2022-10-18] MEDS: SODIUM CHLORIDE 0.9% 1,000 ML IV SCH ×2 (01:59→22:22)
[2022-10-18] MEDS: SODIUM CHLORIDE 0.9% 1,000 ML in EMPTY BAG 1 BAG IV SCH ×2 (02:00→13:06)
[2022-10-18 06:13] LABS: Glucose,Whole Blood 186 mg/dL (70-110)
[2022-10-18] MEDS: INSULIN ASPART (NovoLOG) 100 UNIT/ML VIAL SQ SCH ×4 (06:47→20:58)
[2022-10-18] MEDS: METOPROLOL TARTRATE 50 MG TAB PO SCH ×2 (09:47→20:57)
[2022-10-18] MEDS: ATORVASTATIN 40 MG TAB PO SCH (09:47)
[2022-10-18] MEDS: TICAGRELOR 90 MG TAB PO SCH ×2 (09:47→20:58)
[2022-10-18] MEDS: lisinopriL 20 MG TAB PO SCH (09:47)
[2022-10-18] MEDS: ASPIRIN 81 MG PO SCH (09:47)
[2022-10-18] MEDS: GABAPENTIN 300 MG CAP PO SCH (09:47)
[2022-10-18] MEDS ORDERED: DEXTROSE 5% IN WATER 250 ML with AMIODARONE 300 MG IV ONE (10:20)
[2022-10-18 11:45] LABS: Glucose,Whole Blood 305 mg/dL (70-110)
--- NOTE | 2022-10-18 11:57 | P.PN ---
Subjective Progress Note Date: 10/18/22 Hospital Course: 66-year-old male with a PMH of type II DM, hypertension, and coronary artery d isease status post CT in the past who is transferred from [facility] where he had presented with complaints of chest pain. While at [facility], there was suspicion for an ST elevation CT which additional longer had upon arrival at the emergency room with EKG showing sinus tachycardia 10 3 bpm with T-wave flattening in lead 3. Repeat EKG showed sinus rhythm at 97 bpm with T-wave inversion in lead 3. Laboratory evaluation revealed leukocytosis of 13.5 and hemoglobin 9.8, troponin 2.650, magnesium 1.2, creatinine 2.17, and glucose 377. Troponin peaked at 11.4. Patient kept on heparin drip. Cardiology was consulted. Cardiac catheterization completed, noted to have mid LAD 40-50% stenosis, PDA 99% stenosis status post PCI CHRISTIE to midPDA. Echo pending. Subjective: Patient seen and examined at bedside. No acute events overnight. Denies any further chest pain, palpitations, nausea, vomiting, diarrhea, constipation, abdominal pain, or urinary complaints. Pertinent positives and negatives as discussed above, a complete review of systems was performed and all other systems are negative. Vitals Signs Reviewed. General: nontoxic, no distress, appears at stated age Derm: warm, dry Head: atraumatic, normocephalic, symmetric Eyes: EOMI, no lid lag, anicteric sclera Mouth: no lip lesion, mucus membranes moist Cardiovascular: S1S2 reg, tachycardic, no murmur Lungs: CTA bilateral, no rhonchi, no rales , no accessory muscle use Abdominal: soft, nontender to palpation, no guarding, no appreciable organomegaly Ext: no gross muscle atrophy, no edema, no contractures Neuro: CN II-XI grossly intact, no focal neuro deficits Psych: Alert, oriented, appropriate affect Assessment and Plan: Non-ST elevation CT Coronary artery disease Status post stent to mid PDA -Aspirin, [place], statin -Cardiology following -Cardiac monitoring -Echo pending Tachycardia -Most recent EKG shows sinus rhythm -Per cardiology, patient was started on amiodarone drip and increase metoprolol -Also on anticoagulation Severe hypomagnesemia -Replace and monitor Kidney injury, acute versus chronic -Continue with gentle IV hydration -Renal function improving -Patient is also on chlorthalidone and hydrochlorothiazide at home, unsure why - continue to hold Chronic conditions: Type II DM, hypertension, HLD -Insulin sliding scale with glucose monitoring -Medications reviewed and reconciled DVT ppx: Subcu heparin Code status: Full code Anticipated discharge place: Home Anticipated discharge time: Pending clinical course Objective - Vital Signs Vital signs: Vital Signs Temp 98.0 F 10/18/22 08:00 Pulse 111 H 10/18/22 08:00 Resp 17 10/18/22 08:00 BP 114/70 10/18/22 08:00 Pulse Ox 97 10/18/22 08:00 FiO2 Intake & Output 10/17/22 10/18/22 10/18/22 18:59 06:59 18:59 Intake Total 540 118 Balance 540 118 Weight 94.347 kg Intake: Oral 540 118 Other: Voiding Method Urinal # Voids 3 1 - Labs CBC & Chem 7: 10/15/22 23:47 10/17/22 08:13 Labs: Abnormal Lab Results - Last 24 Hours (Table) 10/17/22 10/17/22 10/17/22 Range/Units 12:03 16:57 20:13 POC Glucose (mg/dL) 259 H 228 H 357 H (70-110) mg/dL Magnesium (1.6-2.3) mg/dL 10/18/22 10/18/22 10/18/22 Range/Units 06:12 10:52 11:38 POC Glucose (mg/dL) 186 H 305 H (70-110) mg/dL Magnesium 1.2 L (1.6-2.3) mg/dL
[2022-10-18 12:54] LABS: T4, Free (Free Thyroxine) 1.34 ng/dL (0.78-2.19)
[2022-10-18] MEDS: APIXABAN 2.5 MG TABLET PO SCH ×2 (13:17→20:59)
--- NOTE | 2022-10-18 14:05 | P.PN ---
Subjective Progress Note Date: 10/18/22 This is Mando Benito NP, I'm dictating on behalf of Dr. Rob's H&P and A&P. Patient was interviewed and examined. Patient is a pleasant 66-year-old male who initially presented to the hospital chest pain, and recently underwent a cardiac catheterization where a stent was placed in the mid PDA. Patient reports that he is doing well today. He states that he feels fairly good, and has no pain that he can speak of. The puncture site in his groin is clean and intact with no obvious leaking. Upon evaluation, the patient has an elevated heart rate, and was found to be in A. fib with RVR. GENERAL: Well-appearing, well-nourished and in no acute distress. NECK: Supple without JVD or thyromegaly. LUNGS: Breath sounds clear to auscultation bilaterally. Respiration equal and unlabored. No wheezes, rales or rhonchi. HEART: Regular rate and rhythm without murmurs, rubs or gallops. S1 and S2 hea rd. EXTREMITIES: Normal range of motion, no edema. No clubbing or cyanosis. Peripheral pulses intact and strong. VITALS: [] TELEMETRY: [] LABS: [] IMPRESSION: 1. Non-ST elevation myocardial infarction, status post cardiac cath and stent of mid PDA 2. A. fib with RVR 3. Hypertension 4. Hyperlipidemia 5. Diabetes mellitus type 2 6. GERD line 7. Coronary artery disease 8. Acute kidney injury PLAN: Increase metoprolol to 100 mg twice a day Start [place] 2.5 mg twice a day Check TSH Give amiodarone IV 300 mg over 2 hours. If blood pressure decreases, discontinue amlodipine. Further recommendations based on the patient's clinical course Objective - Vital Signs Vital signs: Vital Signs Temp 98.0 F 10/18/22 08:00 Pulse 111 H 10/18/22 08:00 Resp 17 10/18/22 08:00 BP 114/70 10/18/22 08:00 Pulse Ox 97 10/18/22 08:00 FiO2 Intake & Output 10/17/22 10/18/22 10/18/22 18:59 06:59 18:59 Intake Total 540 236 Balance 540 236 Weight 94.347 kg Intake: Oral 540 236 Other: Voiding Method Urinal # Voids 3 1 - Labs CBC & Chem 7: 10/15/22 23:47 10/17/22 08:13 Labs: Abnormal Lab Results - Last 24 Hours (Table) 10/17/22 10/17/22 10/18/22 Range/Units 16:57 20:13 06:12 POC Glucose (mg/dL) 228 H 357 H 186 H (70-110) mg/dL Magnesium (1.6-2.3) mg/dL TSH (0.465-4.680) mIU/L 10/18/22 10/18/22 10/18/22 Range/Units 10:52 10:52 11:38 POC Glucose (mg/dL) 305 H (70-110) mg/dL Magnesium 1.2 L (1.6-2.3) mg/dL TSH 0.126 L (0.465-4.680) mIU/L
[2022-10-18] MEDS: MAGNESIUM SULFATE-D5W PMX 1 GM in DEXTROSE/WATER 1 100ML.BAG IVPB SCH ×4 (15:46→22:20)
[2022-10-18 16:58] LABS: Glucose,Whole Blood 270 mg/dL (70-110)
[2022-10-18 20:22] LABS: Glucose,Whole Blood 304 mg/dL (70-110)
[2022-10-18] MEDS: ZOLPIDEM 5 MG TAB PO SCH (20:57)
[2022-10-18] MEDS: amLODIPine 5 MG TAB PO SCH (20:58)
[2022-10-19] MEDS: SODIUM CHLORIDE 0.9% 1,000 ML in EMPTY BAG 1 BAG IV SCH ×3 (01:54→21:37)
[2022-10-19 06:23] LABS: Glucose,Whole Blood 236 mg/dL (70-110)
[2022-10-19] MEDS: INSULIN ASPART (NovoLOG) 100 UNIT/ML VIAL SQ SCH ×4 (06:31→21:37)
[2022-10-19] MEDS: ATORVASTATIN 40 MG TAB PO SCH (09:12)
[2022-10-19] MEDS: METOPROLOL TARTRATE 50 MG TAB PO SCH (09:12)
[2022-10-19] MEDS: GABAPENTIN 300 MG CAP PO SCH (09:12)
[2022-10-19] MEDS: TICAGRELOR 90 MG TAB PO SCH ×2 (09:12→21:36)
[2022-10-19] MEDS: APIXABAN 2.5 MG TABLET PO SCH ×2 (09:12→21:36)
[2022-10-19] MEDS: ASPIRIN 81 MG PO SCH (09:12)
[2022-10-19] MEDS: lisinopriL 20 MG TAB PO SCH (09:12)
[2022-10-19 09:20] LABS: Calcium 8.4 mg/dL (8.4-10.2); Potassium 4.6 mmol/L (3.5-5.1)
[2022-10-19] MEDS ORDERED: METOPROLOL TARTRATE 50 MG TAB PO ONE (10:00)
--- NOTE | 2022-10-19 11:09 | P.PN ---
Subjective Progress Note Date: 10/19/22 Hospital Course: 66-year-old male with a PMH of type II DM, hypertension, and coronary artery disease status post [place] in the past who is transferred from [facility] where he had presented with complaints of chest pain. While at [facility], there was suspicion for an ST elevation [place] which additional longer had upon arrival at the emergency room with EKG showing sinus tachycardia 10 3 bpm with T-wave flattening in lead 3. Repeat EKG showed sinus rhythm at 97 bpm with T-wave inversion in lead 3. Laboratory evaluation revealed leukocytosis of 13.5 and hemoglobin 9.8, troponin 2.650, magnesium 1.2, creatinine 2.17, and glucose 377. Troponin peaked at 11.4. Patient was on heparin drip. Cardiology was consulted. Cardiac catheterization completed, noted to have mid LAD 40-50% stenosis, PDA 99% stenosis status post PCI CHRISTIE to midPDA. Echo showed LVEF 45-50%, mild TR, mild MR. Patient also in atrial fibrillation with RVR, started on Eliquis and increased dose of metoprolol. Subjective: Patient seen and examined at bedside. No acute events overnight. Denies any further chest pain, palpitations, nausea, vomiting, diarrhea, constipation, abdominal pain, or urinary complaints. Pertinent positives and negatives as discussed above, a complete review of systems was performed and all other systems are negative. Vitals Signs Reviewed. General: nontoxic, no distress, appears at stated age Derm: warm, dry Head: atraumatic, normocephalic, symmetric Eyes: EOMI, no lid lag, anicteric sclera Mouth: no lip lesion, mucus membranes moist Cardiovascular: S1S2 reg, no murmur Lungs: CTA bilateral, no rhonchi, no rales , no accessory muscle use Abdominal: soft, nontender to palpation, no guarding, no appreciable organomegaly Ext: no gross muscle atrophy, no edema, no contractures Neuro: CN II-XI grossly intact, no focal neuro deficits Psych: Alert, oriented, appropriate affect Assessment and Plan: Non-ST elevation [place] Coronary artery disease Status post stent to mid PDA -Aspirin, [place], statin -Cardiology following -Cardiac monitoring -Echo showed LVEF 45-50%, mild TR, mild MR A. fib with RVR -Per cardiology, patient was started on amiodarone drip (now discontinued )and increase metoprolol -Also on anticoagulation Severe hypomagnesemia -Resolved Kidney injury, acute versus chronic - resolving Hyponatremia, possibly hypervolemic -Renal function improving -Patient is also on chlorthalidone and hydrochlorothiazide at home, unsure why - continue to hold -Hold off any more IV fluids -Encourage oral intake only Chronic conditions: Type II DM, hypertension, HLD -Insulin sliding scale with glucose monitoring -Medications reviewed and reconciled DVT ppx: Subcu heparin Code status: Full code Anticipated discharge place: Home Anticipated discharge time: Pending clinical course Objective - Vital Signs Vital signs: Vital Signs Temp 98.2 F 10/19/22 08:00 Pulse 103 H 10/19/22 08:00 Resp 17 10/19/22 08:00 BP 107/73 10/19/22 08:00 Pulse Ox 97 10/19/22 08:00 FiO2 Intake & Output 10/18/22 10/19/22 10/19/22 18:59 06:59 18:59 Intake Total 236 740 118 Balance 236 740 118 Intake: Intake, IV Titration 200 Amount Magnesium Sulfate-D5w Pmx 200 1 gm In Dextrose/Water 1 100ml.bag @ 100 mls/hr IVPB Q1H [facility] Rx#: [id number] Oral 236 540 118 Other: Voiding Method Urinal Urinal Urinal # Voids 1 - Labs CBC & Chem 7: 10/15/22 23:47 10/19/22 08:53 Labs: Abnormal Lab Results - Last 24 Hours (Table) 10/18/22 10/18/22 10/18/22 Range/Units 10:52 10:52 11:38 Sodium (137-145) mmol/L Carbon Dioxide (22-30) mmol/L Creatinine (0.66-1.25) mg/dL Glucose (74-99) mg/dL POC Glucose (mg/dL) 305 H (70-110) mg/dL Magnesium 1.2 L (1.6-2.3) mg/dL TSH 0.126 L (0.465-4.680) mIU/L 10/18/22 10/18/22 10/19/22 Range/Units 16:55 20:20 06:21 Sodium (137-145) mmol/L Carbon Dioxide (22-30) mmol/L Creatinine (0.66-1.25) mg/dL Glucose (74-99) mg/dL POC Glucose (mg/dL) 270 H 304 H 236 H (70-110) mg/dL Magnesium (1.6-2.3) mg/dL TSH (0.465-4.680) mIU/L 10/19/22 Range/Units 08:53 Sodium 128 L (137-145) mmol/L Carbon Dioxide 21 L (22-30) mmol/L Creatinine 1.48 H (0.66-1.25) mg/dL Glucose 312 H (74-99) mg/dL POC Glucose (mg/dL) (70-110) mg/dL Magnesium (1.6-2.3) mg/dL TSH (0.465-4.680) mIU/L
[2022-10-19 11:59] LABS: Glucose,Whole Blood 277 mg/dL (70-110)
--- NOTE | 2022-10-19 12:27 | P.PN ---
Subjective Progress Note Date: 10/19/22 This is Mando Benito NP, I'm dictating on behalf of Dr. Rob's H&P and A&P. Patient was interviewed and examined. Patient is a pleasant 66-year-old male who initially presented to the hospital with chest pain and recently underwent cardiac catheterization with a stent to the mid PDA. Patient reports he is continuing to feel better today. Patient's metoprolol was increased 200 mg twice a day yesterday, which did help control his heart rate better. Patient was also started on amiodarone and was given a 300 mg bolus over 2 hours, which effectively terminated the rapid ventricular response. Patient's heart rate today is much better controlled, however is still slightly elevated. His blood pressure is also stable. GENERAL: Well-appearing, well-nourished and in no acute distress. NECK: Supple without JVD or thyromegaly. LUNGS: Breath sounds clear to auscultation bilaterally. Respiration equal and unlabored. No wheezes, rales or rhonchi. HEART: Regular rate and irregular rhythm without murmurs, rubs or gallops. S1 and S2 heard. EXTREMITIES: Normal range of motion, no edema. No clubbing or cyanosis. Peripheral pulses intact and strong. VITALS: Temp 98.2, pulse 103, respirations 17, blood pressure 107/73, O2 saturation 97% on room air TELEMETRY: Atrial fibrillation with controlled ventricular response, with variable heart rate into the low 100s LABS: Sodium 128, potassium 4.6, B1 20, creatinine 1.48, magnesium 2.0 IMPRESSION: 1. Non-ST elevation myocardial infarction, status post cardiac cath and stent of mid PDA 2. A. fib with RVR 3. Hypertension 4. Hyperlipidemia 5. Diabetes mellitus type 2 6. GERD line 7. Coronary artery disease 8. Acute kidney injury 9. Hyperthyroid PLAN: Change metoprolol to 150 mg in the morning, 100 mg at night. Give a one-time 50 mg dose this morning. Discontinue aspirin. Patient is now on Eliquis 2.5 mg twice a day. Patient's TSH was 0.126, free T4 1 0.34. Hospitalist to further investigate low TSH. Further recommendations based on the patient's clinical course. Objective - Vital Signs Vital signs: Vital Signs Temp 98.2 F 10/19/22 08:00 Pulse 103 H 10/19/22 08:00 Resp 17 10/19/22 08:00 BP 107/73 10/19/22 08:00 Pulse Ox 97 10/19/22 08:00 FiO2 Intake & Output 10/18/22 10/19/22 10/19/22 18:59 06:59 18:59 Intake Total 236 740 118 Balance 236 740 118 Intake: Intake, IV Titration 200 Amount Magnesium Sulfate-D5w Pmx 200 1 gm In Dextrose/Water 1 100ml.bag @ 100 mls/hr IVPB Q1H [facility] Rx#: [id number] Oral 236 540 118 Other: Voiding Method Urinal Urinal Urinal # Voids 1 - Labs CBC & Chem 7: 10/15/22 23:47 10/19/22 08:53 Labs: Abnormal Lab Results - Last 24 Hours (Table) 10/18/22 10/18/22 10/19/22 Range/Units 16:55 20:20 06:21 Sodium (137-145) mmol/L Carbon Dioxide (22-30) mmol/L Creatinine (0.66-1.25) mg/dL Glucose (74-99) mg/dL POC Glucose (mg/dL) 270 H 304 H 236 H (70-110) mg/dL 10/19/22 10/19/22 Range/Units 08:53 11:56 Sodium 128 L (137-145) mmol/L Carbon Dioxide 21 L (22-30) mmol/L Creatinine 1.48 H (0.66-1.25) mg/dL Glucose 312 H (74-99) mg/dL POC Glucose (mg/dL) 277 H (70-110) mg/dL
[2022-10-19 17:02] LABS: Glucose,Whole Blood 223 mg/dL (70-110)
[2022-10-19 20:21] LABS: Glucose,Whole Blood 263 mg/dL (70-110)
[2022-10-19] MEDS ORDERED: METOPROLOL TARTRATE 50 MG TAB PO SCH (21:00)
[2022-10-19] MEDS: ZOLPIDEM 5 MG TAB PO SCH (21:36)
[2022-10-20 06:24] LABS: Glucose,Whole Blood 227 mg/dL (70-110)
[2022-10-20] MEDS: INSULIN ASPART (NovoLOG) 100 UNIT/ML VIAL SQ SCH ×2 (06:51→12:30)
[2022-10-20 08:01] LABS: Calcium 8.7 mg/dL (8.4-10.2); Potassium 4.7 mmol/L (3.5-5.1)
[2022-10-20] MEDS ORDERED: METOPROLOL TARTRATE 50 MG TAB PO SCH (09:00)
--- NOTE | 2022-10-20 09:48 | CDI ---
Documentation Clarification Form Date: 10/20/2022 9:31:00 AM From: Angelique Lomeli CCS, CCDS Admit Date: 10/16/2022 12:55:00 AM Patient Name: Wilver Arredondo Visit Number: [id number] Discharge Date: ATTENTION: The Clinical Documentation Specialists (CDI) and [facility] Coding Staff appreciate your assistance in clarifying documentation. Please respond to the clarification below the line at the bottom and electronically sign. The CDI & [facility] Coding staff will review the response and follow-up if needed. Please note: Queries are made part of the Legal Health Record. If you have any questions, please contact the author of this message via ITS. Dr. Elroy Rob: Per the 10/16 Cardiology Consult: Consult reason: Non-Q wave MA, congestive heart failure. Additional information regarding the Type & Acuity of CHF is requested. History/Risk Factors per the 10/16 H/P: Hypertension, CAD status post MA, DM II, Hyperlipidemia, Former smoker. Clinical Indicators: Presented to the ED on 10/15 via EMS as a transfer from [facility] with a STEMI, complaining of chest pain possibly abnormal EKG. Admit with Chest Pain, ACS 10/15 VS: T 98.2, P 102, R 16, BP 130/83, PO 98 RA, BMI: 32.6 10/15 LAB: WBC 13.5, Hgb 9.8, Hct 30.6, Neutrophils 10.7; APTT 88.0; Na 135, Chloride 108, CO2 21, BUN 37, Creatinine 2.17, glucose 377, Hgb A1c 7.9, Calcium 8.0, Magnesium 1.2, AST 83, ALT 57, Troponin 2.650, Total protein 5.4, Albumin 3.1. BNP not done. 10/16 CXR: Normal chest 10/17 Echocardiogram Results: EF 45-50%, Mild increased left ventricular wall thickness, Mild MR, Mild TR. Treatment 10/16: Telemetry, IV Heparin drip, Ramon catheterization, O2 2Lnc : standby, IV Morphine 4 mg q4H/prn, IV Mag Sulf/dextrose 100 mls @ 100 mls/hr q1H, IV na Chl 250 mls @ 999 mls/hr q16H. To electrical laboratory technician 10/16: Left heart catheterization, PTCA w/CHRISTIE stent to mid PDA. In your professional opinion, can you please clarify the specificity of the documented CHF: [x ] Unable to determine (Template Last Revised: November 2020) Unable to determine MTDD
[2022-10-20] MEDS: APIXABAN 2.5 MG TABLET PO SCH (09:56)
[2022-10-20] MEDS: ATORVASTATIN 40 MG TAB PO SCH (09:56)
[2022-10-20] MEDS: TICAGRELOR 90 MG TAB PO SCH (09:56)
[2022-10-20] MEDS: GABAPENTIN 300 MG CAP PO SCH (09:56)
--- NOTE | 2022-10-20 09:58 | P.PN ---
Subjective Progress Note Date: 10/20/22 HISTORY OF PRESENT ILLNESS: 10/19/2022 Patient is a pleasant 66-year-old male who initially presented to the hospital with chest pain and recently underwent cardiac catheterization with a stent to the mid PDA. Patient reports he is continuing to feel better today. Patient's metoprolol was increased 200 mg twice a day yesterday, which did help control his heart rate better. Patient was also started on amiodarone and was given a 300 mg bolus over 2 hours, which effectively terminated the rapid ventricular response. Patient's heart rate today is much better controlled, however is still slightly elevated. His blood pressure is also stable. 10/20/2022 Patient examined this morning at the bedside. Patient denies chest pain or pressure. Denies SOB. He has been up to the bathroom ambulating without difficulty. Telemetry reveals sinus mechanism with heart rate in the 90s. Echocardiogram completed revealing ejection fraction 45-50%. PHYSICAL EXAM: VITAL SIGNS: Reviewed. GENERAL: Well-developed in no acute distress. NECK: Supple. No JVD or thyromegaly LUNGS: Respirations even and unlabored. Lungs essentially clear to auscultation bilaterally. HEART: Regular rate and rhythm. S1 and S2 heard. EXTREMITIES: Normal range of motion. No clubbing or cyanosis. Peripheral pulses intact. No lower extremity edema ASSESSMENT: 1. Non-ST elevation myocardial infarction, status post cardiac cath with PCI of mid PDA 2. New onset atrial fibrillation with RVR, currently maintaining sinus mechanism 3. Hypertension 4. Hyperlipidemia 5. Diabetes mellitus type 2 6. GERD 7. Coronary artery disease 8. Acute kidney injury 9. Hyperthyroid PLAN: Continue current cardiac medications Continue telemetry monitoring Continue anticoagulation with Eliquis Patient currently stable from a cardiac standpoint Patient to follow up on an outpatient basis with Dr. Rob Nurse practitioner note has been reviewed by physician. Signing provider agrees with the documented findings, assessment, and plan of care. Objective - Vital Signs Vital signs: Vital Signs Temp 98.6 F 10/20/22 04:00 Pulse 53 L 10/20/22 04:00 Resp 17 10/20/22 04:00 BP 112/71 10/20/22 04:00 Pulse Ox 95 10/20/22 04:00 FiO2 Intake & Output 10/19/22 10/20/22 10/20/22 18:59 06:59 18:59 Intake Total 236 250 360 Balance 236 250 360 Intake: Intake, IV Titration 250 Amount Sodium Chloride 0.9% 1, 100 000 ml @ 0 mls/hr IV .[facility] Rx#:[id number] Sodium Chloride 0.9% 1, 150 000 ml @ 50 mls/hr IV . Q20H [facility] Rx#:[id number] Oral 236 360 Other: Voiding Method Urinal Urinal # Voids 1 - Labs CBC & Chem 7: 10/15/22 23:47 10/20/22 07:18 Labs: Abnormal Lab Results - Last 24 Hours (Table) 10/19/22 10/19/22 10/19/22 Range/Units 11:56 16:57 20:19 Sodium (137-145) mmol/L Chloride (98-107) mmol/L BUN (9-20) mg/dL Creatinine (0.66-1.25) mg/dL Glucose (74-99) mg/dL POC Glucose (mg/dL) 277 H 223 H 263 H (70-110) mg/dL 10/20/22 10/20/22 Range/Units 06:22 07:18 Sodium 129 L (137-145) mmol/L Chloride 97 L (98-107) mmol/L BUN 27 H (9-20) mg/dL Creatinine 1.67 H (0.66-1.25) mg/dL Glucose 200 H (74-99) mg/dL POC Glucose (mg/dL) 227 H (70-110) mg/dL
[2022-10-20 12:11] LABS: Glucose,Whole Blood 404 mg/dL (70-110)
[2022-10-20] MEDS: lisinopriL 20 MG TAB PO SCH (12:30)
[2022-10-20 12:56] VITALS: BP 136/70; PULSE 60; RESP 18; TEMP 98
--- NOTE | 2022-10-20 13:13 | P.DS ---
Providers Date of admission: 10/16/22 00:55 Expected date of discharge: 10/20/22 Attending physician: Robert Mcknight MD Consults: 10/16/22 00:55 Consult Physician Routine Consulting Provider: Brianna Amaral Consult Reason/Comments: cp Do you want consulting provider notified?: Yes 10/16/22 21:26 Consult Physician Routine Consulting Provider: [facility] Consult Reason/Comments: Post Interventional Patient Do you want consulting provider notified?: Already Contacted Primary care physician: Stated None Hospital Course: Discharge Diagnosis: Non-ST elevation [place] Coronary artery disease Status post stent to mid PDA A. fib with RVR Severe hypomagnesemia Kidney injury, acute versus chronic Euvolemic hyponatremia Type 2 diabetes Hypertension Dyslipidemia Hospital Course: 66-year-old male with a PMH of type II DM, hypertension, and coronary artery disease status post KS in the past who is transferred from [facility] where he had presented with complaints of chest pain. EKG showed sinus rhythm at 97 bpm with T-wave inversion in lead 3. Laboratory evaluation revealed leukocytosis of 13.5 and hemoglobin 9.8, troponin 2.650, magnesium 1.2, creatinine 2.17, and glucose 377. Troponin peaked at 11.4. Patient was on heparin drip. Cardiology was consulted. Cardiac catheterization completed, noted to have mid LAD 40-50% stenosis, PDA 99% stenosis status post PCI CHRISTIE to midPDA. Echo showed LVEF 45-50%, mild TR, mild MR. Patient also in atrial fibrillation with RVR, started on Eliquis and increased home dose of metoprolol. Patient's TSH is mildly depressed, normal free T4. He will need a repeat TSH in 4-6 weeks. Magnesium normalized with repletion. Sodium stable, likely euvolemic hyponatremia. Could possibly be related to thyroid disorder. Patient was also on 2 separate thiazides at home, discontinued. Diabetic medications changed to metformin and dapagliflozin. May benefit from adding GLP1 agonist in the future. Patient seen and examined at bedside. Vital signs reviewed and stable. General: nontoxic, no distress, appears at stated age Derm: warm, dry Head: atraumatic, normocephalic, symmetric Eyes: EOMI, no lid lag, anicteric sclera Mouth: no lip lesion, mucus membranes moist Cardiovascular: S1S2 reg, no murmur Lungs: CTA bilateral, no rhonchi, no rales , no accessory muscle use Abdominal: soft, nontender to palpation, no guarding, no appreciable organomegaly Ext: no gross muscle atrophy, no edema, no contractures Neuro: CN II-XI grossly intact, no focal neuro deficits Psych: Alert, oriented, appropriate affect A total of 45 minutes of time were spent preparing this complex discharge summary. Patient was discharged on 10/20/22 at 10:17. Patient Condition at Discharge: Stable Plan - Discharge Summary Discharge Rx Participant: No New Discharge Prescriptions: New Apixaban [Eliquis] 2.5 mg PO BID #60 tab Metoprolol Tartrate [Lopressor] 150 mg PO DAILY #30 tab Metoprolol Tartrate [Lopressor] 100 mg PO HS #30 tab Ticagrelor [Brilinta] 90 mg PO BID #90 tab Atorvastatin [Lipitor] 40 mg PO DAILY #30 tab lisinopriL [Zestril] 20 mg PO DAILY #30 tab Dapagliflozin Propanediol [Farxiga] 5 mg PO DAILY #30 tablet Continue Triamcinolone 0.5% Cream [Kenalog 0.5% Cream] 1 applic TOPICAL BID metFORMIN HCL [Glucophage] 1,000 mg PO BID Gabapentin 600 mg PO DAILY Zolpidem [Ambien] 10 mg PO HS Omeprazole [PriLOSEC] 20 mg PO BID amLODIPine [Norvasc] 5 mg PO HS Cyclobenzaprine [Flexeril] 10 mg PO Q8H PRN PRN Reason: Muscle Pain Multivitamins, Thera [Multivitamin (formulary)] 1 tab PO DAILY Discontinued Diclofenac Sodium Gel [Voltaren Gel] 1 applic TOPICAL QID PRN PRN Reason: Pain Aspirin 81 mg PO DAILY lisinopriL [Zestril] 20 mg PO TID glipiZIDE [Glucotrol XL] 10 mg PO BID Chlorthalidone 50 mg PO QAM Pioglitazone [Actos] 30 mg PO DAILY Metoprolol Tartrate [Lopressor] 50 mg PO BID Meloxicam [Mobic] 15 mg PO DAILY hydroCHLOROthiazide [Hydrodiuril] 25 mg PO DAILY Atorvastatin [Lipitor] 20 mg PO DAILY Discharge Medication List Cyclobenzaprine [Flexeril] 10 mg PO Q8H PRN 10/16/22 [History] Gabapentin 600 mg PO DAILY 10/16/22 [History] Multivitamins, Thera [Multivitamin (formulary)] 1 tab PO DAILY 10/16/22 [History] Omeprazole [PriLOSEC] 20 mg PO BID 10/16/22 [History] Triamcinolone 0.5% Cream [Kenalog 0.5% Cream] 1 applic TOPICAL BID 10/16/22 [History] Zolpidem [Ambien] 10 mg PO HS 10/16/22 [History] amLODIPine [Norvasc] 5 mg PO HS 10/16/22 [History] metFORMIN HCL [Glucophage] 1,000 mg PO BID 10/16/22 [History] Apixaban [Eliquis] 2.5 mg PO BID #60 tab 10/20/22 [Rx] Atorvastatin [Lipitor] 40 mg PO DAILY #30 tab 10/20/22 [Rx] Dapagliflozin Propanediol [Farxiga] 5 mg PO DAILY #30 tablet 10/20/22 [Rx] Metoprolol Tartrate [Lopressor] 100 mg PO HS #30 tab 10/20/22 [Rx] Metoprolol Tartrate [Lopressor] 150 mg PO DAILY #30 tab 10/20/22 [Rx] Ticagrelor [Brilinta] 90 mg PO BID #90 tab 10/20/22 [Rx] lisinopriL [Zestril] 20 mg PO DAILY #30 tab 10/20/22 [Rx] Follow up Appointment(s)/Referral(s): Yazan Caballero DO [STAFF PHYSICIAN] - 1 Week (OFFICE WILL CONTACT YOU WITH APPOINTMENT DATE AND TIME.) None,Stated [Primary Care Provider] - 1-2 days Patient Instructions/Handouts: *Surgery [facility] - After Heart Catheterization - [employer] Instructions, Metoprolol (By mouth), Lisinopril (By mouth), Atorvastatin (By mouth), Ticagrelor (By mouth), Apixaban (By mouth), Dapagliflozin (By mouth), Heart Attack (DC), A-fib (Atrial Fibrillation) (DC), Carotid Artery Stent Placement (DC) Discharge/Stand Alone Forms: Who Do I Call?, Community Resources Discharge Disposition: HOME SELF-CARE
== END 2022-10-20 13:15 | disposition home or self-care (01) | DRG 247 ==
LOC: EC 23:35 → 6NMEDSUR 10-16 00:55 → OBSVTOIN 10-16 00:55 → 3SCARD 10-16 03:20
PROVIDERS: ADMIT Internal Medicine; ATTEND Internal Medicine
PROC: 027034Z Dilation of Coronary Artery, One Artery with Drug-eluting Intraluminal Device, Percutaneous Approach (ICD-10-PCS; principal; 2022-10-16 19:05)
PROC: 4A023N7 Measurement of Cardiac Sampling and Pressure, Left Heart, Percutaneous Approach (ICD-10-PCS; principal; 2022-10-16 19:05)
PROC: B2111ZZ Fluoroscopy of Multiple Coronary Arteries using Low Osmolar Contrast (ICD-10-PCS; principal; 2022-10-16 19:05)
DX: I21.4 Non-ST elevation (NSTEMI) myocardial infarction (principal); E87.1 Hypo-osmolality and hyponatremia; N17.9 Acute kidney failure, unspecified; I13.0 Hypertensive heart and chronic kidney disease with heart failure and stage 1 through stage 4 chronic kidney disease, or unspecified chronic kidney disease; D72.829 Elevated white blood cell count, unspecified; M19.90 Unspecified osteoarthritis, unspecified site; E05.90 Thyrotoxicosis, unspecified without thyrotoxic crisis or storm; E07.81 Sick-euthyroid syndrome; E78.5 Hyperlipidemia, unspecified; E83.42 Hypomagnesemia; I25.10 Atherosclerotic heart disease of native coronary artery without angina pectoris; I50.9 Heart failure, unspecified; N18.9 Chronic kidney disease, unspecified; E11.22 Type 2 diabetes mellitus with diabetic chronic kidney disease; I48.91 Unspecified atrial fibrillation; K21.9 Gastro-esophageal reflux disease without esophagitis; I25.2 Old myocardial infarction; Z87.891 Personal history of nicotine dependence; Z88.8 Allergy status to other drugs, medicaments and biological substances; Z79.84 Long term (current) use of oral hypoglycemic drugs; Z79.899 Other long term (current) drug therapy; Z79.82 Long term (current) use of aspirin
CPT/HCPCS: 36415; 71046; 80048; 80053; 83036; 83735; 84439; 84443; 84484; 85025; 85610; 85730; 93005; 93306; 93458; 94760; 96365; 96366; 96368; 99285